=== PATIENT | female | born 1995 | race American Indian/Alaskan Native ===

== ENCOUNTER 2018-07-29 04:37 | Emergency (ER) | payer SELFPAY ==
[2018-07-29 04:54] VITALS: BP 119/58
[2018-07-29 05:49] LABS: Basophils % (Auto) 0.4 % (0.0-1.8); Eosinophils % (Auto) 0.4 % (0.0-4.3); Hematocrit 37.6 % (30.3-42.9); Hemoglobin 12.5 gm/dl (10.1-14.3); Lymphocytes # (Auto) 1.8 K/mm3 (1.2-5.4); Lymphocytes % (Auto) 23.7 % (13.4-35.0); Mean Corpuscular HGB Conc 33 % (30-34); Mean Corpuscular Volume 83 fl (79-97); Monocytes # (Auto) 0.7 K/mm3 (0.0-0.8); Monocytes % (Auto) 9.3 % (0.0-7.3); Platelet Count 232 K/mm3 (140-440); Red Blood Count 4.52 M/mm3 (3.65-5.03); Red Cell Distribution Width 13.3 % (13.2-15.2)
[2018-07-29] MEDS ORDERED: TYLENOL ONE (06:16)
[2018-07-29 06:34] LABS: Bacteria,Urine 4+ /HPF (Negative); Bilirubin,Urine NEG (Negative); Blood,Urine LG (Negative); Color,Urine Straw (Yellow); Protein,Urine <15 mg/dL mg/dL (Negative); Urobilinogen,Urine < 2.0 mg/dL (<2.0)
[2018-07-29] MEDS ORDERED: TYLENOL PO ONE (07:02)
--- NOTE | 2018-07-29 07:18 | Emergency Department Report ---
ED HPI - General Chief complaint: Vaginal Bleeding Stated complaint: 7WKS AND BLEEDING Time Seen by Provider: 07/29/18 07:06 Source: patient Mode of arrival: Ambulatory Limitations: No Limitations - History of Present Illness Initial comments: w/ LMP / cramping, bright red bleeding was evaluated at another facility yesterday but states sx have worsened no fever, vomiting no hx ectopic MD Complaint: abdominal pain, vaginal bleeding -: Gradual, Last night Location: pelvis Severity: moderate Severity scale (0 -10): 4 Quality: cramping Consistency: constant Improves with: none Worsens with: none Associated symptoms: vaginal bleeding. denies: vaginal discharge Vaginal bleeding: light :: Yes - Related Data Previous Rx's Medication Instructions Recorded Last Taken Type Cephalexin [Keflex] 500 mg PO BID #14 capsule 07/29/18 Unknown Rx Allergies Allergy/AdvReac Type Severity Reaction Status Date / Time fish derived Allergy Anaphylaxis Verified 07/29/18 04:40 ED Review of Systems ROS: Stated complaint: 7WKS AND BLEEDING Other details as noted in HPI Comment: All other systems reviewed and negative Gastrointestinal: as per HPI, abdominal pain. denies: nausea, vomiting Genitourinary: as per HPI ED Past Medical Hx - Past Medical History Previous Medical History?: No - Surgical History Past Surgical History?: No - Social History Smoking Status: Never Smoker Substance Use Type: None - Medications Home Medications: Home Medications Medication Instructions Recorded Confirmed Last Taken Type Cephalexin [Keflex] 500 mg PO BID #14 capsule 07/29/18 Unknown Rx ED Physical Exam - General Limitations: No Limitations General appearance: alert, in no apparent distress - Head Head exam: Present: atraumatic, normocephalic - Eye Eye exam: Present: normal appearance - ENT ENT exam: Present: mucous membranes moist - Neck Neck exam: Present: normal inspection - Respiratory Respiratory exam: Present: normal lung sounds bilaterally. Absent: respiratory distress - Cardiovascular Cardiovascular Exam: Present: regular rate, normal rhythm. Absent: systolic murmur, diastolic murmur, rubs, gallop - GI/Abdominal GI/Abdominal exam: Present: soft, tenderness (mild pelvic), normal bowel sounds. Absent: guarding - Extremities Exam Extremities exam: Present: normal inspection - Back Exam Back exam: Present: normal inspection - Neurological Exam Neurological exam: Present: alert, oriented X3 - Psychiatric Psychiatric exam: Present: normal affect, normal mood - Skin Skin exam: Present: warm, dry, intact, normal color. Absent: rash ED Course Vital Signs 07/29/18 07/29/18 04:45 04:51 Temperature 98.2 F 98.2 F Pulse Rate 89 90 Respiratory 18 18 Rate Blood Pressure 119/58 119/58 O2 Sat by Pulse 100 100 Oximetry ED Medical Decision Making - Lab Data Result diagrams: 07/29/18 05:09 - Radiology Data Radiology results: report reviewed, image reviewed interpreted by me: single viable IUP HR 161 normal- 7w4d SVIUP - Medical Decision Making 7w with bleeding likely threatened ab considered but less likely ectopic, acute abdominal surgical process plan for US, OB f/u, pelvic rest if normal US shows SVIUP UA shows leukocytes and bacteria will culture and place on abx fu OBGYN, complete pelvic rest - Differential Diagnosis threatened ab, uti, ectopic Critical care attestation.: If time is entered above; I have spent that time in minutes in the direct care of this critically ill patient, excluding procedure time. ED Disposition Clinical Impression: Threatened in early , Acute UTI Disposition: DC-01 TO HOME OR SELFCARE Is pt being admited?: No Condition: Good Instructions: Urinary Tract Infection in Women (ED), Threatened Miscarriage (ED) Prescriptions: Cephalexin [Keflex] 500 mg PO BID #14 capsule Referrals: AROLDO CONNOLLY MD [Staff Physician] - 2-3 Days Time of Disposition: 08:21
--- NOTE | 2018-07-29 08:17 | Ultrasound Report ---
FINAL REPORT PROCEDURE: US OB < = 14 WEEKS FETUS TECHNIQUE: Real-time transabdominal sonography of the uterus, placenta, amniotic fluid, adnexa, and fetus was performed with image documentation. Measurements were obtained to determine age/size. M-mode Doppler was used to document heartbeat. CPT 83987 HISTORY: vaginal bleeding COMPARISON: No prior studies are available for comparison. FINDINGS: CRL: 13 mm, which corresponds to a gestational age of: 7 weeks, 4 days. Yolk Sac: Normal. Embryonic Cardiac Activity: 161 beats per minute Gestational Sac: Normal. Amniotic fluid: Normal. Cervix: Normal. Right Ovary: Normal. Left Ovary: Normal. Estimated delivery date: 03/13/2019 Uterus and adnexa: Normal. IMPRESSION: Single live intrauterine gestation at approximately 7 weeks 4 days. EDC by US 03/13/2019
== END 2018-07-29 08:28 | disposition home or self-care (01) ==
LOC: ED 04:37
DX: O20.0 Threatened abortion (principal); O23.41 Unspecified infection of urinary tract in pregnancy, first trimester; Z91.013 Allergy to seafood; Z3A.01 Less than 8 weeks gestation of pregnancy
CPT/HCPCS: 36415; 76801; 81001; 84702; 85025; 86850; 86900; 86901; 87076; 87086; 87186

== ENCOUNTER 2020-01-26 14:33 | Emergency (ER) | payer BC ==
--- NOTE | 2020-01-26 17:30 | Emergency Department Report ---
Blank Doc - Documentation Documentation: 25-year-old female that presents with bilateral flank pain and generlized weak ness. Stated is 13 weeks and had normal ultrasound. This initial assessment/diagnostic orders/clinical plan/treatment(s) is/are subject to change based on patient's health status, clinical progression and re- assessment by fellow clinical providers in the ED. Further treatment and workup at subsequent clinical providers discretion. Patient/guardians urged not to elope from the ED as their condition may be serious if not clinically assessed and managed. Initial orders include: 1- Patient sent to [facility] for further evaluation and treatment 2- UA 3- labs
[2020-01-26 17:31] VITALS: BP 119/96
[2020-01-26 18:20] LABS: Basophils % (Auto) 0.5 % (0.0-1.8); Eosinophils % (Auto) 0.2 % (0.0-4.3); Hematocrit 39.8 % (30.3-42.9); Hemoglobin 13.4 gm/dl (10.1-14.3); Lymphocytes # (Auto) 1.4 K/mm3 (1.2-5.4); Lymphocytes % (Auto) 14.5 % (13.4-35.0); Mean Corpuscular HGB Conc 34 % (30-34); Mean Corpuscular Volume 81 fl (79-97); Monocytes # (Auto) 0.8 K/mm3 (0.0-0.8); Monocytes % (Auto) 8.9 % (0.0-7.3); Platelet Count 290 K/mm3 (140-440); Red Blood Count 4.88 M/mm3 (3.65-5.03); Red Cell Distribution Width 13.7 % (13.2-15.2)
[2020-01-26 18:44] LABS: Alanine Aminotransferase 44 units/L (7-56); Blood Urea Nitrogen 7 mg/dL (7-17); Calcium 10.1 mg/dL (8.4-10.2); Hemolysis Index 0
[2020-01-26 19:04] LABS: Bacteria,Urine 4+ /HPF (Negative); Bilirubin,Urine NEG (Negative); Blood,Urine NEG (Negative); Color,Urine Yellow (Yellow); Mucus,Urine 2+ /HPF; Urobilinogen,Urine < 2.0 mg/dL (<2.0)
[2020-01-26 19:21] LABS: BUN/Creatinine Ratio 18
--- NOTE | 2020-01-26 21:22 | Emergency Department Report ---
ED Back Pain/Injury HPI - General Chief Complaint: Back Pain/Injury Stated Complaint: WEAK/BACK PAIN/PREG 13WEEKS Time Seen by Provider: 01/26/20 17:28 Source: patient Limitations: No Limitations - History of Present Illness Initial Comments: 35-year-old -[place] female presents to the emergency room complaining of lower back pain generalized weakness x1 week. Patient reports that she is 13 weeks and 4 days . Patient denies any dysuria no hematuria no vaginal discharge or vaginal bleeding. She denies any fever chills she does admit to vomiting. Patient's last menstrual period was October 14, 2019. She is 2 para 1. MD Complaint: back pain Onset/Timin -: week(s) Similar Symptoms Previously: Yes Severity scale (0 -10): 8 Quality: aching Consistency: constant Improves With: none Worsens With: none Associated Symptoms: nausea/vomiting (Vomiting during ). denies: numbness, difficulty walking, fever/chills, constipation, abdominal pain - Related Data Previous Rx's Medication Instructions Recorded Last Taken Type Cephalexin [Keflex] 500 mg PO BID #14 capsule 07/29/18 Unknown Rx cephALEXin [Keflex] 500 mg PO Q12HR 7 Days #14 cap 01/26/20 Unknown Rx Allergies Allergy/AdvReac Type Severity Reaction Status Date / Time fish derived Allergy Anaphylaxis Verified 07/29/18 04:40 ED Review of Systems ROS: Stated complaint: WEAK/BACK PAIN/PREG 13WEEKS Other details as noted in HPI Comment: All other systems reviewed and negative ED Past Medical Hx - Past Medical History Previous Medical History?: Yes Hx Dementia: Yes ( induced DM) - Surgical History Past Surgical History?: No - Social History Smoking Status: Never Smoker Substance Use Type: None - Medications Home Medications: Home Medications Medication Instructions Recorded Confirmed Last Taken Type Cephalexin [Keflex] 500 mg PO BID #14 capsule 07/29/18 Unknown Rx cephALEXin [Keflex] 500 mg PO Q12HR 7 Days #14 cap 01/26/20 Unknown Rx ED Physical Exam - General Limitations: No Limitations General appearance: alert, in no apparent distress - Head Head exam: Present: atraumatic, normocephalic - Eye Eye exam: Present: normal appearance - ENT ENT exam: Present: mucous membranes moist - Neck Neck exam: Present: normal inspection - Respiratory Respiratory exam: Present: normal lung sounds bilaterally. Absent: respiratory distress - Cardiovascular Cardiovascular Exam: Present: regular rate, normal rhythm. Absent: systolic murmur, diastolic murmur, rubs, gallop - GI/Abdominal GI/Abdominal exam: Present: soft, normal bowel sounds - Extremities Exam Extremities exam: Present: normal inspection - Back Exam Back exam: Present: normal inspection - Neurological Exam Neurological exam: Present: alert, oriented X3 - Psychiatric Psychiatric exam: Present: normal affect, normal mood - Skin Skin exam: Present: warm, dry, intact, normal color. Absent: rash ED Course Vital Signs 01/26/20 17:28 Temperature 98.2 F Pulse Rate 96 H Respiratory 16 Rate Blood Pressure 119/96 O2 Sat by Pulse 98 Oximetry ED Medical Decision Making - Lab Data Result diagrams: 01/26/20 17:33 01/26/20 17:33 - Medical Decision Making 35-year-old -[place] female presents to the emergency room complaining of lower back pain generalized weakness x1 week. Patient reports that she is 13 weeks and 4 days . Patient denies any dysuria no hematuria no vaginal discharge or vaginal bleeding. She denies any fever chills she does admit to vomiting. Patient's last menstrual period was October 14, 2019. She is 2 para 1. Patient appears to have a urinary tract infection. She will be placed on Keflex instructed to take Tylenol as needed for pain. Also instructed to increase her water intake avoid sugary drinks such as soda sweet tea juices. Instructed patient to follow-up with her TECHNICAL AIDE in the next 3 to 5 days. Critical care attestation.: If time is entered above; I have spent that time in minutes in the direct care of this critically ill patient, excluding procedure time. ED Disposition Clinical Impression: UTI (urinary tract infection) during Disposition: DC-01 TO HOME OR SELFCARE Is pt being admited?: No Does the pt Need Aspirin: No Condition: Stable Instructions: Urinary Tract Infection in Women (ED) Additional Instructions: Complete antibiotics as prescribed. Increase your water intake. Avoid sugary drinks such as sodas tea and juices. Follow-up with your TECHNICAL AIDE in the next 3 to 5 days. Prescriptions: cephALEXin [Keflex] 500 mg PO Q12HR 7 Days #14 cap Referrals: PRIMARY CARE, [Primary Care Provider] - 3-5 Days You are, TECHNICAL AIDE [Other] - 3-5 Days
== END 2020-01-26 21:40 | disposition home or self-care (01) ==
LOC: ED 14:33
DX: O23.41 Unspecified infection of urinary tract in pregnancy, first trimester (principal); O26.891 Other specified pregnancy related conditions, first trimester; O21.8 Other vomiting complicating pregnancy; M54.5 Low back pain; R53.1 Weakness; F03.90 Unspecified dementia, unspecified severity, without behavioral disturbance, psychotic disturbance, mood disturbance, and anxiety; Z3A.13 13 weeks gestation of pregnancy; Z79.899 Other long term (current) drug therapy; Z91.013 Allergy to seafood
CPT/HCPCS: 36415; 80053; 81001; 84702; 85025; 87086